=== PATIENT | male | born 1980 | race Caucasian/White ===

== ENCOUNTER 2022-08-03 18:00 | Outpatient (CLI) | payer BC | END 2022-08-03 18:01 | disposition home or self-care (01) | LOC: SLEEPLAB 18:00 | PROVIDERS: ATTEND Family Medicine | DX: G47.33 Obstructive sleep apnea (adult) (pediatric) (principal); R53.83 Other fatigue; E66.9 Obesity, unspecified; R06.83 Snoring; G47.00 Insomnia, unspecified; Z68.42 Body mass index [BMI] 45.0-49.9, adult; E66.2 Morbid (severe) obesity with alveolar hypoventilation | CPT/HCPCS: 95800 ==

== ENCOUNTER 2022-11-20 19:00 | Outpatient (CLI) | payer BC | END 2022-11-20 19:01 | disposition home or self-care (01) | LOC: SLEEPLAB 19:00 | PROVIDERS: ATTEND Family Medicine | DX: G47.33 Obstructive sleep apnea (adult) (pediatric) (principal); R53.83 Other fatigue; E66.9 Obesity, unspecified; R06.83 Snoring; G47.10 Hypersomnia, unspecified; Z68.42 Body mass index [BMI] 45.0-49.9, adult | CPT/HCPCS: 95811 ==